=== PATIENT | male | born 1990 | race Two or more races ===

== ENCOUNTER 2019-06-11 23:47 | Emergency (ER) | payer SELFPAY ==
[~2019-06-11] VITALS: Ht 167.6 cm; Wt 63.6 kg
--- NOTE | 2019-06-12 00:14 | PHYS DOC ---
Past Medical History Attending Signature I have participated in the care of this patient and I have reviewed and agree with all pertinent clinical information above including history, exam, and recommendations. (ERIC ENGLISH MD) Adult General Chief Complaint Chief Complaint: FLU SYMPTOM HPI HPI Patient is a 29 year old male presenting the ED with intermittent mild generalized headaches, cough, sore throat, subjective fevers, symptoms began one week ago. (RENETTA ROJAS APRN) Review of Systems Review of Systems Constitutional: Reports fever, body aches Eyes: Denies change in visual acuity, redness, or eye pain [] HENT: Reports sore throat. Denies nasal congestion Respiratory: Reports cough, denies shortness of breath [] Cardiovascular: No additional information not addressed in HPI [] GI: Denies abdominal pain, nausea, vomiting, bloody stools or diarrhea [] : Denies dysuria or hematuria [] Musculoskeletal: Denies back pain or joint pain [] Integument: Denies rash or skin lesions [] Neurologic: Reports headaches, denies focal weakness or sensory changes [] All other systems were reviewed and found to be within normal limits, except as documented in this note. (RENETTA ROJAS APRN) Current Medications Current Medications Current Medications Medications (Trade) Dose Ordered Sig/Noelle Start Time Stop Time Status Last Admin Dose Admin Acetaminophen (Tylenol) 1,000 mg 1X ONCE 06/12/19 00:30 06/12/19 00:31 DC 06/12/19 00:29 1,000 MG Albuterol/ Ipratropium (Duoneb) 3 ml 1X ONCE 06/12/19 00:30 06/12/19 00:31 DC 06/12/19 00:33 3 ML Benzonatate (Tessalon Perle) 100 mg 1X ONCE 06/12/19 00:30 06/12/19 00:31 DC 06/12/19 00:29 100 MG Doxycycline Hyclate (Vibra-Tab) 100 mg 1X ONCE 06/12/19 00:30 06/12/19 00:31 DC 06/12/19 00:30 100 MG (ERIC ENGLISH MD) Allergies Allergies Allergies Coded Allergies Type Severity Reaction Last Updated Verified No Known Drug Allergies 06/12/19 No (ERIC ENGLISH MD) Physical Exam Physical Exam Constitutional: Well developed, well nourished, no acute distress, non-toxic appearance. [] HENT: Normocephalic, atraumatic, bilateral external ears normal, oropharynx moist, no oral exudates, nose normal. [] Eyes: PERRLA, EOMI, conjunctiva normal, no discharge. [] Neck: Normal range of motion, no tenderness, supple, no stridor. [] Cardiovascular:Heart rate regular rhythm, no murmur [] Lungs & Thorax: Bilateral breath sounds clear to auscultation [] Abdomen: Bowel sounds normal, soft, no tenderness, no masses, no pulsatile masses. [] Skin: Warm, dry, no erythema, no rash. [] Back: No tenderness, no CVA tenderness. [] Extremities: No tenderness, no cyanosis, no clubbing, ROM intact, no edema. [] Neurologic: Alert and oriented X 3, normal motor function, normal sensory function, no focal deficits noted. Cranial nerves II through XII intact Psychologic: Affect normal, judgement normal, mood normal. [] (RENETTA ROJAS APRN) Current Patient Data Vital Signs Vital Signs Date Time Temp Pulse Resp B/P (MAP) Pulse Ox O2 Delivery O2 Flow Rate FiO2 06/12/19 00:32 98 Room Air 06/12/19 00:17 99.0 105 16 148/78 (101) 99.0 (ERIC ENGLISH MD) Lab Values Laboratory Tests Test 06/12/19 00:04 Influenza Type A Antigen Negative (NEGATIVE) Influenza Type B Antigen Negative (NEGATIVE) (ERIC ENGLISH MD) EKG EKG [] (RENETTA ROJAS APRN) Radiology/Procedures Radiology/Procedures [] (RENETTA ROJAS APRN) Course & Med Decision Making Course & Med Decision Making Pertinent Labs and Imaging studies reviewed. (See chart for details) This is a 29-year-old male patient presenting to the ED today with complaints of body aches chills cough sore throat and a headache for week. Chest x-ray noted for right middle lobe pneumonia. Given first dose of doxycycline and discharged with the same. Tylenol/Motrin for pain or fever. Provided return precautions and discharged in stable condition. (RENETTA ROJAS APRN) Dragon Disclaimer Dragon Disclaimer This electronic medical record was generated, in whole or in part, using a voice recognition dictation system. (RENETTA ROJAS APRN) Departure Departure Impression: Primary Impression: Right middle lobe pneumonia Additional Impression: Fever Disposition: 01 HOME, SELF-CARE Condition: STABLE Referrals: NO PCP (PCP) follow up with your doctor in 1-2 weeks Patient Instructions: Pneumonia, Adult, [id number] Additional Instructions: You were seen in the emergency room and noted to have pneumonia. We put you on antibiotics, take them as prescribed. Follow-up with your doctor next week. Scripts Benzonatate (TESSALON PERLE) 100 Mg Capsule 1 CAP PO TID, #30 CAP Prov: RENETTA ROJAS APRN 06/12/19 Acetaminophen (TYLENOL) 325 Mg Tablet 1-2 TAB PO QID, #60 TAB 2 Refills Prov: RENETTA ROJAS APRN 06/12/19 Doxycycline Hyclate (DOXYCYCLINE HYCLATE) 100 Mg Tablet 1 TAB PO BID, #14 TAB Prov: RENETTA ROJAS APRN 06/12/19 Problem Qualifiers Primary Impression: Right middle lobe pneumonia Pneumonia type: due to unspecified organism Qualified Codes: J18.9 - Pneumonia, unspecified organism Additional Impression: Fever Fever type: unspecified Qualified Codes: R50.9 - Fever, unspecified RENETTA ROJAS APRN Jun 12, 2019 00:14 ERIC ENGLISH MD Jun 12, 2019 03:36
[2019-06-12 00:17] VITALS: BP 148/78
[2019-06-12] MEDS ORDERED: BENZONATATE 100 MG CAPSULE. PO ONE (00:30)
[2019-06-12] MEDS ORDERED: ACETAMINOPHEN 500 MG TABLET PO ONE (00:30)
[2019-06-12] MEDS ORDERED: IPRATRPIUM/ALBUTEROL 0.5/2.5MG 3 ML NEBU. NEB ONE (00:30)
[2019-06-12] MEDS ORDERED: DOXYCYCLINE HYCLATE 100 MG TABLET PO ONE (00:30)
[2019-06-12 00:35] LABS: INFLUENZA A PATIENT NEGATIVE (NEGATIVE); INFLUENZA B PATIENT NEGATIVE (NEGATIVE)
[2019-06-12] MEDS ORDERED: ACET325T9 PO (00:35)
[2019-06-12] MEDS ORDERED: DOXY100T PO (00:35)
[2019-06-12] MEDS ORDERED: BENZ100C PO (00:35)
--- NOTE | 2019-06-12 02:58 | RAD ---
CHEST PA LATERAL History: Cough Comparison: None. Findings: The cardiomediastinal silhouette is normal. Pulmonary vasculature is normal. There is airspace opacity in the right midlung measuring 3.7 x 6 cm. Question whether this localizes to the posterior upper lobe or the superior segment of the right lower lobe on the lateral view. Mild bibasilar atelectasis. No pleural effusion or pneumothorax is seen. There is no acute bone abnormality. IMPRESSION: Right midlung pneumonia. 6-8 weeks after completion of medical therapy, a followup chest radiograph is recommended to document resolution. Electronically signed by: Chet Myers MD (06/12/2019 2:55 AM) [id number]
== END 2019-06-12 00:44 | disposition home or self-care (01) ==
LOC: ER 23:47
DX: J18.9 Pneumonia, unspecified organism (principal); R51 Headache; R05 Cough
CPT/HCPCS: 71046; 87070; 87804; 87880; 94640; 99285; J7620

== ENCOUNTER 2021-05-10 16:14 | Emergency (ER) | payer SELFPAY ==
[~2021-05-10 16:14] MED LIST: ACET325T9 PO; BENZ100C PO; DOXY100T PO
== END 2021-05-11 00:14 | disposition left against medical advice (07) ==
LOC: ER 16:14
DX: R05.9 Cough, unspecified (principal); R51.9 Headache, unspecified; M54.9 Dorsalgia, unspecified; Z53.21 Procedure and treatment not carried out due to patient leaving prior to being seen by health care provider